=== PATIENT | male | born 1975 | race African-American/Black ===

== ENCOUNTER 2017-06-17 10:10 | Emergency (ER) | payer OTHER ==
[2017-06-17] MEDS: NS 1,000 ML IV (11:00)
[2017-06-17] MEDS: MORPHINE 4 MG/ML 1ML VIAL IV (11:27)
[2017-06-17 11:58] LABS: BASO % 0.3 % (0.0-1.0); EOS # 0.2 10^3/uL (0.0-0.50); EOS % 2.2 % (0.0-3.0); HEMATOCRIT 40.1 % (42.0-52.0); HEMOGLOBIN 12.9 g/dl (14.0-18.0); IMMATURE GRANULOCYTE % 0.1 % (0-0); LYMPH # 1.8 10^3/uL (1.5-4.5); LYMPH % 25.6 % (24.0-44.0); MEAN CORPUSCULAR HGB CONC 32.2 g/dl (32.0-36.5); MEAN CORPUSCULAR VOLUME 71.5 fl (80.0-96.0); MONO # 0.8 10^3/uL (0.0-0.8); MONO % 10.8 % (0.0-5.0); NEUTROPHILS # 4.4 10^3/uL (1.8-7.7); PLATELET COUNT, AUTOMATED 347 10^3/uL (150-450); RED BLOOD COUNT 5.61 10^6/uL (4.30-6.10); RED CELL DISTRIBUTION WIDTH 14.9 % (11.5-14.5); WHITE BLOOD COUNT 7.2 10^3/uL (4.0-10.0)
[2017-06-17 12:19] LABS: ALBUMIN 3.3 GM/DL (3.2-5.2); ALBUMIN/GLOBULIN RATIO 0.57 (1.00-1.93); ALKALINE PHOSPHATASE 112 U/L (45-117); ALT/SGPT 55 U/L (12-78); ANION GAP 9 MEQ/L (8-16); AST/SGOT 46 U/L (7-37); BILIRUBIN,TOTAL 0.6 MG/DL (0.2-1.0); BLOOD UREA NITROGEN 12 MG/DL (7-18); C REACTIVE PROTEIN QUANTITATIV 5.91 MG/DL (0.00-0.30); CALCIUM LEVEL 9.3 MG/DL (8.5-10.1); CARBON DIOXIDE LEVEL 26 MEQ/L (21-32); CHLORIDE LEVEL 101 MEQ/L (98-107); CREATININE FOR GFR 0.86 MG/DL (0.70-1.30); GLOMERULAR FILTRATION RATE > 60.0 (>60); GLUCOSE, FASTING 83 MG/DL (70-100); LIPASE 116 U/L (73-393); POTASSIUM SERUM 4.2 MEQ/L (3.5-5.1); SODIUM LEVEL 136 MEQ/L (136-145); TOTAL PROTEIN 9.1 GM/DL (6.4-8.2)
[2017-06-17 12:29] LABS: ERYTHROCYTE SEDIMENTATION RATE 42 mm/hr (0-15)
[2017-06-17] MEDS ORDERED: ISOVUE-370 76% 100ML VIAL (Q9967) As Ordered (12:36)
[2017-06-17] MEDS ORDERED: GASTROGRAFIN SOLUTION 30ML (Q9963) As Ordered (12:39)
[2017-06-17] MEDS: GASTROGRAFIN SOLUTION 30ML PO ×2 (12:45→13:15)
== END 2017-06-17 15:14 | disposition home or self-care (01) ==
LOC: M ED 10:10
DX: K50.00 Crohn's disease of small intestine without complications (principal); J45.909 Unspecified asthma, uncomplicated; Z87.891 Personal history of nicotine dependence
CPT/HCPCS: Q9967

== ENCOUNTER 2017-08-21 10:39 | Emergency (ER) | payer OTHER ==
[2017-08-21 13:25] LABS: BASO % 0.3 % (0.0-1.0); EOS # 0.1 10^3/uL (0.0-0.50); HEMATOCRIT 38.1 % (42.0-52.0); HEMOGLOBIN 12.1 g/dl (13.5-17.5); IMMATURE GRANULOCYTE % 0.2 % (0-3.0); LYMPH # 2.3 10^3/uL (1.5-4.5); LYMPH % 39.9 % (24.0-44.0); MEAN CORPUSCULAR HGB CONC 31.8 g/dl (32.0-36.5); MEAN CORPUSCULAR VOLUME 69.3 fl (80.0-96.0); MONO # 0.7 10^3/uL (0.0-0.8); MONO % 11.8 % (0.0-5.0); NEUTROPHILS # 2.7 10^3/uL (1.8-7.7); NEUTROPHILS % 46.8 % (36.0-66.0); PLATELET COUNT, AUTOMATED 390 10^3/uL (150-450); RED CELL DISTRIBUTION WIDTH 16.8 % (11.5-14.5); WHITE BLOOD COUNT 5.8 10^3/uL (4.0-10.0)
[2017-08-21] MEDS: GASTROGRAFIN SOLUTION 30ML PO ×2 (13:27→14:00)
[2017-08-21] MEDS: methylPREDNISolone INJ 125 MG/2 ML VIAL (J2930) IV (13:27)
[2017-08-21] MEDS: KETOROLAC 30 MG/ML VIAL (J1885) IV (13:28)
[2017-08-21 13:46] LABS: LACTIC ACID SEPSIS PROTOCOL 0.7 MMOL/L (0.4-2.0)
[2017-08-21 13:57] LABS: ERYTHROCYTE SEDIMENTATION RATE 58 mm/hr (0-15)
[2017-08-21 14:23] LABS: ALBUMIN 3.4 GM/DL (3.2-5.2); ALBUMIN/GLOBULIN RATIO 0.59 (1.00-1.93); ALKALINE PHOSPHATASE 104 U/L (45-117); ALT/SGPT 38 U/L (12-78); AMYLASE 66 U/L (25-115); ANION GAP 6 MEQ/L (8-16); AST/SGOT 28 U/L (7-37); BILIRUBIN,DIRECT 0.2 MG/DL (0.0-0.2); BILIRUBIN,TOTAL 0.5 MG/DL (0.2-1.0); BLOOD UREA NITROGEN 9 MG/DL (7-18); C REACTIVE PROTEIN QUANTITATIV 4.92 MG/DL (0.00-0.30); CALCIUM LEVEL 8.9 MG/DL (8.5-10.1); CARBON DIOXIDE LEVEL 29 MEQ/L (21-32); CHLORIDE LEVEL 103 MEQ/L (98-107); GLOMERULAR FILTRATION RATE > 60.0 (>60); GLUCOSE, FASTING 85 MG/DL (70-100); LIPASE 159 U/L (73-393); POTASSIUM SERUM 4.1 MEQ/L (3.5-5.1); SODIUM LEVEL 138 MEQ/L (136-145); TOTAL PROTEIN 9.2 GM/DL (6.4-8.2)
[2017-08-21] MEDS ORDERED: ISOVUE-370 76% 100ML VIAL (Q9967) As Ordered (14:30)
[2017-08-21 14:44] LABS: APPEARANCE, URINE HAZY (CLEAR); BACTERIA, URINE AUTO NEGATIVE (NEGATIVE); BILIRUBIN, URINE AUTO NEGATIVE (NEGATIVE); BLOOD, URINE BLOOD NEGATIVE (NEGATIVE); COLOR, URINE AMBER (YELLOW); GLUCOSE, URINE (UA) AUTO NEGATIVE (NEGATIVE); KETONE, URINE AUTO NEGATIVE (NEGATIVE); LEUKOCYTE ESTERASE, URINE AUTO NEGATIVE (NEGATIVE); MUCUS, URINE SMALL (NEGATIVE); NITRITE, URINE AUTO NEGATIVE (NEGATIVE); PROTEIN, URINE AUTO NEGATIVE (NEGATIVE); RBC, URINE AUTO 2 /HPF (0-3); SPECIFIC GRAVITY URINE AUTO 1.018 (1.002-1.035); SQUAMOUS EPITHELIAL CELL UR AU 0 /HPF (0-6); UROBILINOGEN, URINE AUTO 0.2 mg/dL (0.0-2.0); WBC, URINE AUTO 1 /HPF (0-3)
== END 2017-08-21 15:43 | disposition home or self-care (01) ==
LOC: M ED 10:39
DX: K50.90 Crohn's disease, unspecified, without complications (principal); K59.00 Constipation, unspecified; J45.909 Unspecified asthma, uncomplicated; Z90.49 Acquired absence of other specified parts of digestive tract; Z79.899 Other long term (current) drug therapy
CPT/HCPCS: Q9963

== ENCOUNTER 2017-10-12 18:08 | Inpatient (IN) | payer OTHER ==
[2017-10-12 19:23] LABS: BASO % 0.2 % (0.0-1.0); EOS # 0.1 10^3/uL (0.0-0.50); EOS % 0.6 % (0.0-3.0); HEMATOCRIT 39.5 % (42.0-52.0); HEMOGLOBIN 12.7 g/dl (13.5-17.5); IMMATURE GRANULOCYTE % 0.3 % (0-3.0); LYMPH # 2.7 10^3/uL (1.5-4.5); MEAN CORPUSCULAR HEMOGLOBIN 22.7 pg (27.0-33.0); MEAN CORPUSCULAR HGB CONC 32.2 g/dl (32.0-36.5); MEAN CORPUSCULAR VOLUME 70.7 fl (80.0-96.0); MONO # 1.1 10^3/uL (0.0-0.8); MONO % 7.8 % (0.0-5.0); NEUTROPHILS % 72.1 % (36.0-66.0); PLATELET COUNT, AUTOMATED 379 10^3/uL (150-450); RED BLOOD COUNT 5.59 10^6/uL (4.30-6.10); RED CELL DISTRIBUTION WIDTH 18.2 % (11.5-14.5); WHITE BLOOD COUNT 13.9 10^3/uL (4.0-10.0)
[2017-10-12] MEDS: ONDANSETRON 4MG/2ML VIAL (J2405) IV (19:26)
[2017-10-12] MEDS: PANTOPRAZOLE 40MG INJ (PROTONIX) (C9113) IV (19:26)
[2017-10-12] MEDS: NS 1,000 ML IV ×2 (19:26→21:13)
[2017-10-12 19:27] LABS: INR 0.94; PROTHROMBIN TIME 12.7 SECONDS (12.4-14.5)
[2017-10-12 19:33] LABS: ALBUMIN 3.6 GM/DL (3.2-5.2); ALKALINE PHOSPHATASE 101 U/L (45-117); ALT/SGPT 33 U/L (12-78); ANION GAP 6 MEQ/L (8-16); AST/SGOT 25 U/L (7-37); BILIRUBIN,DIRECT < 0.1 MG/DL (0.0-0.2); BILIRUBIN,TOTAL 0.4 MG/DL (0.2-1.0); BLOOD UREA NITROGEN 9 MG/DL (7-18); CALCIUM LEVEL 8.7 MG/DL (8.5-10.1); CARBON DIOXIDE LEVEL 27 MEQ/L (21-32); CHLORIDE LEVEL 104 MEQ/L (98-107); CREATININE FOR GFR 1.06 MG/DL (0.70-1.30); GLOMERULAR FILTRATION RATE > 60.0 (>60); GLUCOSE, FASTING 96 MG/DL (70-100); LIPASE 199 U/L (73-393); POTASSIUM SERUM 3.7 MEQ/L (3.5-5.1); SODIUM LEVEL 137 MEQ/L (136-145); TOTAL PROTEIN 9.6 GM/DL (6.4-8.2)
[2017-10-12] MEDS: MORPHINE 4 MG/ML 1ML VIAL/SYRINGE (J2270) IV ×2 (20:00→23:01)
[2017-10-12 20:58] LABS: KETONE, URINE AUTO RFX NEGATIVE (NEGATIVE); LEUKOCYTE ESTERASE UR AUTO RFX NEGATIVE (NEGATIVE); MUCUS, URINE RFX SMALL (NEGATIVE); NITRITE, URINE AUTO RFX NEGATIVE (NEGATIVE); RBC, URINE AUTO RFX 7 /HPF (0-3); SPECIFIC GRAVITY UR AUTO RFX 1.015 (1.002-1.035); SQUAM EPITHELIAL CELL UR AURFX 0 /HPF (0-6); WBC, URINE AUTO RFX 1 /HPF (0-3)
[2017-10-12] MEDS: methylPREDNISolone INJ 125 MG/2 ML VIAL (J2930) IV (21:09)
[2017-10-12] MEDS ORDERED: ONDANSETRON 4MG/2ML VIAL (J2405) IV (21:15)
[2017-10-12] MEDS ORDERED: ACETAMINOPHEN TAB 650MG DOSE (2X325MG) PO (21:15)
[2017-10-12] MEDS ORDERED: PERCOCET 5MG/325MG TAB PO (21:15)
[2017-10-13] MEDS: MORPHINE 4 MG/ML 1ML VIAL/SYRINGE (J2270) IV (02:57)
[2017-10-13] MEDS: NS 1,000 ML IV ×3 (04:03→21:14)
[2017-10-13 06:31] LABS: HEMATOCRIT 36.5 % (42.0-52.0); HEMOGLOBIN 11.7 g/dl (13.5-17.5); MEAN CORPUSCULAR HEMOGLOBIN 22.5 pg (27.0-33.0); MEAN CORPUSCULAR HGB CONC 32.1 g/dl (32.0-36.5); MEAN CORPUSCULAR VOLUME 70.2 fl (80.0-96.0); PLATELET COUNT, AUTOMATED 351 10^3/uL (150-450); RED CELL DISTRIBUTION WIDTH 17.4 % (11.5-14.5); WHITE BLOOD COUNT 10.7 10^3/uL (4.0-10.0)
[2017-10-13 06:46] LABS: ANION GAP 7 MEQ/L (8-16); BLOOD UREA NITROGEN 10 MG/DL (7-18); CALCIUM LEVEL 8.2 MG/DL (8.5-10.1); CARBON DIOXIDE LEVEL 25 MEQ/L (21-32); CHLORIDE LEVEL 106 MEQ/L (98-107); CREATININE FOR GFR 0.92 MG/DL (0.70-1.30); GLOMERULAR FILTRATION RATE > 60.0 (>60); GLUCOSE, FASTING 137 MG/DL (70-100); POTASSIUM SERUM 4.2 MEQ/L (3.5-5.1); SODIUM LEVEL 138 MEQ/L (136-145)
[2017-10-13 08:12] LABS: C REACTIVE PROTEIN QUANTITATIV 5.51 MG/DL (0.00-0.30)
[2017-10-13] MEDS: PANTOPRAZOLE 40MG TAB (PROTONIX) PO (08:27)
[2017-10-13] MEDS: predniSONE 20 MG TAB PO ×2 (08:28→20:06)
[2017-10-13] MEDS: ENOXAPARIN 40 MG/0.4 ML SYRINGE (J1650) SC (08:28)
[2017-10-13] MEDS: PERCOCET 5MG/325MG TAB PO ×3 (08:29→23:33)
[2017-10-13] MEDS ORDERED: predniSONE 20 MG TAB PO (09:00)
[2017-10-13] MEDS ORDERED: PANTOPRAZOLE 40MG TAB (PROTONIX) PO (09:00)
[2017-10-13] MEDS: PIPERACILLIN/TAZOBACTAM SOD 3.375 GM in D5W MINI-BAG PLUS 50 ML IV ×3 (12:12→23:33)
[2017-10-14] MEDS: NS 1,000 ML IV (05:11)
[2017-10-14] MEDS: PIPERACILLIN/TAZOBACTAM SOD 3.375 GM in D5W MINI-BAG PLUS 50 ML IV (05:20)
[2017-10-14] MEDS: PERCOCET 5MG/325MG TAB PO ×2 (05:21→09:47)
[2017-10-14 06:08] LABS: HEMATOCRIT 34.2 % (42.0-52.0); HEMOGLOBIN 10.9 g/dl (13.5-17.5); MEAN CORPUSCULAR HEMOGLOBIN 22.7 pg (27.0-33.0); MEAN CORPUSCULAR HGB CONC 31.9 g/dl (32.0-36.5); MEAN CORPUSCULAR VOLUME 71.3 fl (80.0-96.0); PLATELET COUNT, AUTOMATED 319 10^3/uL (150-450); RED CELL DISTRIBUTION WIDTH 17.5 % (11.5-14.5); WHITE BLOOD COUNT 12.4 10^3/uL (4.0-10.0)
[2017-10-14 06:31] LABS: ANION GAP 5 MEQ/L (8-16); BLOOD UREA NITROGEN 11 MG/DL (7-18); C REACTIVE PROTEIN QUANTITATIV 3.81 MG/DL (0.00-0.30); CALCIUM LEVEL 8.2 MG/DL (8.5-10.1); CARBON DIOXIDE LEVEL 27 MEQ/L (21-32); CHLORIDE LEVEL 108 MEQ/L (98-107); CREATININE FOR GFR 0.94 MG/DL (0.70-1.30); GLOMERULAR FILTRATION RATE > 60.0 (>60); GLUCOSE, FASTING 124 MG/DL (70-100); POTASSIUM SERUM 4.1 MEQ/L (3.5-5.1); SODIUM LEVEL 140 MEQ/L (136-145)
[2017-10-14] MEDS: ENOXAPARIN 40 MG/0.4 ML SYRINGE (J1650) SC (08:19)
[2017-10-14] MEDS: PANTOPRAZOLE 40MG TAB (PROTONIX) PO (08:25)
[2017-10-14] MEDS: predniSONE 20 MG TAB PO (08:25)
== END 2017-10-14 13:50 | disposition home or self-care (01) | DRG 249 ==
LOC: M MS5PR 10-13 11:26 → M ED 18:08 → M ED INP 21:13 → M MS5PR 22:32
DX: K52.9 Noninfective gastroenteritis and colitis, unspecified (principal); Z91.013 Allergy to seafood; Z79.899 Other long term (current) drug therapy

== ENCOUNTER → 2017-10-23 | Outpatient (REF) | payer OTHER ==
[2017-10-23 10:17] LABS: BASO % 0.1 % (0.0-1.0); EOS # 0.1 10^3/uL (0.0-0.50); EOS % 0.4 % (0.0-3.0); HEMATOCRIT 38.9 % (42.0-52.0); HEMOGLOBIN 12.2 g/dl (13.5-17.5); IMMATURE GRANULOCYTE % 0.4 % (0-3.0); LYMPH # 2.6 10^3/uL (1.5-4.5); LYMPH % 19.2 % (24.0-44.0); MEAN CORPUSCULAR HEMOGLOBIN 22.7 pg (27.0-33.0); MEAN CORPUSCULAR HGB CONC 31.4 g/dl (32.0-36.5); MEAN CORPUSCULAR VOLUME 72.4 fl (80.0-96.0); MONO # 0.6 10^3/uL (0.0-0.8); MONO % 4.5 % (0.0-5.0); NEUTROPHILS # 10.3 10^3/uL (1.8-7.7); NEUTROPHILS % 75.4 % (36.0-66.0); PLATELET COUNT, AUTOMATED 403 10^3/uL (150-450); RED BLOOD COUNT 5.37 10^6/uL (4.30-6.10); RED CELL DISTRIBUTION WIDTH 19.3 % (11.5-14.5); WHITE BLOOD COUNT 13.7 10^3/uL (4.0-10.0)
[2017-10-23 10:48] LABS: IRON (FE) 60 UG/DL (65-175)
[2017-10-31 00:10] LABS: ADALIMUMAB LEVEL 8.2 ug/mL (.); ANTI-ADALIMUMAB ABY <25 ng/mL (.); TPMT Activity 19.9 (.)
== END ==
LOC: M LAB REF 09:45
DX: K52.9 Noninfective gastroenteritis and colitis, unspecified (principal)

== ENCOUNTER 2017-11-26 12:00 | Emergency (ER) | payer OTHER ==
[2017-11-26] MEDS: ONDANSETRON 4MG/2ML VIAL (J2405) IV (13:01)
[2017-11-26] MEDS: MORPHINE 4 MG/ML 1ML VIAL/SYRINGE (J2270) IV ×2 (13:01→16:09)
[2017-11-26] MEDS: NS 1,000 ML IV (13:01)
[2017-11-26 13:22] LABS: BASO % 0.3 % (0.0-1.0); EOS % 0.3 % (0.0-3.0); HEMATOCRIT 38.4 % (42.0-52.0); HEMOGLOBIN 12.3 g/dl (13.5-17.5); IMMATURE GRANULOCYTE % 0.3 % (0-3.0); LYMPH % 17.2 % (24.0-44.0); MEAN CORPUSCULAR VOLUME 71.8 fl (80.0-96.0); MONO # 0.9 10^3/uL (0.0-0.8); MONO % 7.8 % (0.0-5.0); NEUTROPHILS # 8.5 10^3/uL (1.8-7.7); NEUTROPHILS % 74.1 % (36.0-66.0); PLATELET COUNT, AUTOMATED 360 10^3/uL (150-450); RED BLOOD COUNT 5.35 10^6/uL (4.30-6.10); RED CELL DISTRIBUTION WIDTH 17.2 % (11.5-14.5); WHITE BLOOD COUNT 11.4 10^3/uL (4.0-10.0)
[2017-11-26 13:42] LABS: ERYTHROCYTE SEDIMENTATION RATE 57 mm/hr (0-15)
[2017-11-26 13:48] LABS: ALBUMIN 3.1 GM/DL (3.2-5.2); ALBUMIN/GLOBULIN RATIO 0.53 (1.00-1.93); ALKALINE PHOSPHATASE 101 U/L (45-117); ALT/SGPT 39 U/L (12-78); ANION GAP 6 MEQ/L (8-16); AST/SGOT 26 U/L (7-37); BILIRUBIN,DIRECT 0.1 MG/DL (0.0-0.2); BILIRUBIN,TOTAL 0.4 MG/DL (0.2-1.0); BLOOD UREA NITROGEN 8 MG/DL (7-18); C REACTIVE PROTEIN QUANTITATIV 3.58 MG/DL (0.00-0.30); CALCIUM LEVEL 8.8 MG/DL (8.5-10.1); CARBON DIOXIDE LEVEL 26 MEQ/L (21-32); CHLORIDE LEVEL 107 MEQ/L (98-107); CREATININE FOR GFR 0.98 MG/DL (0.70-1.30); GLOMERULAR FILTRATION RATE > 60.0 (>60); GLUCOSE, FASTING 86 MG/DL (70-100); LIPASE 110 U/L (73-393); POTASSIUM SERUM 3.8 MEQ/L (3.5-5.1); SODIUM LEVEL 139 MEQ/L (136-145); TOTAL PROTEIN 8.9 GM/DL (6.4-8.2)
[2017-11-26 13:50] LABS: LACTIC ACID SEPSIS PROTOCOL 0.9 MMOL/L (0.4-2.0)
[2017-11-26] MEDS ORDERED: ISOVUE-370 76% 100ML VIAL (Q9967) As Ordered (13:58)
[2017-11-26 15:41] LABS: KETONE, URINE AUTO RFX NEGATIVE (NEGATIVE); LEUKOCYTE ESTERASE UR AUTO RFX NEGATIVE (NEGATIVE); MUCUS, URINE RFX SMALL (NEGATIVE); NITRITE, URINE AUTO RFX NEGATIVE (NEGATIVE); RBC, URINE AUTO RFX 1 /HPF (0-3); SQUAM EPITHELIAL CELL UR AURFX 0 /HPF (0-6); WBC, URINE AUTO RFX 0 /HPF (0-3)
[2017-11-26] MEDS ORDERED: ACETAMINOPHEN 325 MG TAB As Ordered (16:32)
[2017-11-26] MEDS: ACETAMINOPHEN 325 MG TAB PO (16:35)
[2017-11-26] MEDS: methylPREDNISolone INJ 125 MG/2 ML VIAL (J2930) IV (16:35)
== END 2017-11-26 17:24 | disposition home or self-care (01) ==
LOC: M ED 12:00
DX: K50.90 Crohn's disease, unspecified, without complications (principal); J45.909 Unspecified asthma, uncomplicated; J44.9 Chronic obstructive pulmonary disease, unspecified; Z91.013 Allergy to seafood; Z79.899 Other long term (current) drug therapy
CPT/HCPCS: J2270

== ENCOUNTER → 2018-02-16 | Outpatient (REF) | payer OTHER ==
[2018-02-16 14:35] LABS: ALBUMIN 3.3 GM/DL (3.2-5.2); ALBUMIN/GLOBULIN RATIO 0.61 (1.00-1.93); ALKALINE PHOSPHATASE 124 U/L (45-117); ALT/SGPT 32 U/L (12-78); AST/SGOT 29 U/L (7-37); BILIRUBIN,DIRECT < 0.1 MG/DL (0.0-0.2); BILIRUBIN,TOTAL 0.4 MG/DL (0.2-1.0); TOTAL PROTEIN 8.7 GM/DL (6.4-8.2)
== END ==
LOC: M LAB REF 13:52
DX: K52.9 Noninfective gastroenteritis and colitis, unspecified (principal)

== ENCOUNTER 2018-02-20 16:23 | Emergency (ER) | payer OTHER ==
[2018-02-20] MEDS: KETOROLAC 30 MG/ML VIAL (J1885) IV (17:53)
[2018-02-20] MEDS: ONDANSETRON 4MG/2ML VIAL (J2405) IV (17:53)
[2018-02-20] MEDS: GASTROGRAFIN SOLUTION 30ML PO ×2 (17:53→18:35)
[2018-02-20] MEDS: NS 1,000 ML IV (17:54)
[2018-02-20 18:00] LABS: BASO % 0.2 % (0.0-1.0); EOS # 0.2 10^3/uL (0.0-0.50); EOS % 1.8 % (0.0-3.0); HEMATOCRIT 34.1 % (42.0-52.0); HEMOGLOBIN 10.7 g/dl (13.5-17.5); IMMATURE GRANULOCYTE % 0.3 % (0-3.0); LYMPH # 2.6 10^3/uL (1.5-4.5); LYMPH % 26.8 % (24.0-44.0); MEAN CORPUSCULAR HEMOGLOBIN 22.2 pg (27.0-33.0); MEAN CORPUSCULAR HGB CONC 31.4 g/dl (32.0-36.5); MEAN CORPUSCULAR VOLUME 70.6 fl (80.0-96.0); MONO # 0.6 10^3/uL (0.0-0.8); MONO % 6.7 % (0.0-5.0); NEUTROPHILS # 6.1 10^3/uL (1.8-7.7); NEUTROPHILS % 64.2 % (36.0-66.0); PLATELET COUNT, AUTOMATED 451 10^3/uL (150-450); RED BLOOD COUNT 4.83 10^6/uL (4.30-6.10); RED CELL DISTRIBUTION WIDTH 18.4 % (11.5-14.5); WHITE BLOOD COUNT 9.5 10^3/uL (4.0-10.0)
[2018-02-20 18:22] LABS: KETONE, URINE AUTO RFX NEGATIVE (NEGATIVE); LEUKOCYTE ESTERASE UR AUTO RFX NEGATIVE (NEGATIVE); NITRITE, URINE AUTO RFX NEGATIVE (NEGATIVE); RBC, URINE AUTO RFX 2 /HPF (0-3); SPECIFIC GRAVITY UR AUTO RFX 1.003 (1.002-1.035); SQUAM EPITHELIAL CELL UR AURFX 0 /HPF (0-6); WBC, URINE AUTO RFX 0 /HPF (0-3)
[2018-02-20 18:23] LABS: LACTIC ACID SEPSIS PROTOCOL 0.8 MMOL/L (0.4-2.0)
[2018-02-20 18:27] LABS: ALBUMIN 3.2 GM/DL (3.2-5.2); ALBUMIN/GLOBULIN RATIO 0.57 (1.00-1.93); ALKALINE PHOSPHATASE 115 U/L (45-117); ALT/SGPT 34 U/L (12-78); AMYLASE 61 U/L (25-115); ANION GAP 8 MEQ/L (8-16); AST/SGOT 28 U/L (7-37); BILIRUBIN,DIRECT < 0.1 MG/DL (0.0-0.2); BILIRUBIN,TOTAL 0.3 MG/DL (0.2-1.0); BLOOD UREA NITROGEN 8 MG/DL (7-18); CALCIUM LEVEL 9.2 MG/DL (8.5-10.1); CARBON DIOXIDE LEVEL 28 MEQ/L (21-32); CHLORIDE LEVEL 103 MEQ/L (98-107); CREATININE FOR GFR 1.02 MG/DL (0.70-1.30); GLOMERULAR FILTRATION RATE > 60.0 (>60); GLUCOSE, FASTING 87 MG/DL (70-100); LIPASE 132 U/L (73-393); SODIUM LEVEL 139 MEQ/L (136-145); TOTAL PROTEIN 8.8 GM/DL (6.4-8.2)
[2018-02-20] MEDS ORDERED: ISOVUE-370 76% 100ML VIAL (Q9967) As Ordered (19:01)
[2018-02-20] MEDS: CIPROFLOXACIN 500 MG TAB PO (20:30)
[2018-02-20] MEDS: predniSONE 20 MG TAB PO (20:30)
[2018-02-20] MEDS: metroNIDAZOLE (FLAGYL) 500 MG TAB PO (20:30)
== END 2018-02-20 20:43 | disposition home or self-care (01) ==
LOC: M ED 16:23
DX: K50.90 Crohn's disease, unspecified, without complications (principal); R11.0 Nausea; J45.909 Unspecified asthma, uncomplicated; J44.9 Chronic obstructive pulmonary disease, unspecified; Z90.49 Acquired absence of other specified parts of digestive tract
CPT/HCPCS: Q9963

== ENCOUNTER 2018-04-30 14:48 | Emergency (ER) | payer OTHER ==
[2018-04-30 16:52] LABS: BASO % 0.2 % (0.0-1.0); EOS # 0.1 10^3/uL (0.0-0.50); HEMOGLOBIN 11.5 g/dl (13.5-17.5); IMMATURE GRANULOCYTE % 0.3 % (0-3.0); LYMPH # 2.4 10^3/uL (1.5-4.5); LYMPH % 24.4 % (24.0-44.0); MEAN CORPUSCULAR HEMOGLOBIN 22.6 pg (27.0-33.0); MEAN CORPUSCULAR HGB CONC 31.9 g/dl (32.0-36.5); MEAN CORPUSCULAR VOLUME 70.7 fl (80.0-96.0); MONO # 0.9 10^3/uL (0.0-0.8); MONO % 9.3 % (0.0-5.0); NEUTROPHILS # 6.3 10^3/uL (1.8-7.7); NEUTROPHILS % 64.8 % (36.0-66.0); PLATELET COUNT, AUTOMATED 363 10^3/uL (150-450); RED BLOOD COUNT 5.09 10^6/uL (4.30-6.10); RED CELL DISTRIBUTION WIDTH 18.9 % (11.5-14.5); WHITE BLOOD COUNT 9.7 10^3/uL (4.0-10.0)
[2018-04-30 16:56] LABS: ALBUMIN 3.1 GM/DL (3.2-5.2); ALBUMIN/GLOBULIN RATIO 0.62 (1.00-1.93); ALKALINE PHOSPHATASE 111 U/L (45-117); ALT/SGPT 45 U/L (12-78); ANION GAP 7 MEQ/L (8-16); AST/SGOT 51 U/L (7-37); BILIRUBIN,DIRECT 0.1 MG/DL (0.0-0.2); BILIRUBIN,TOTAL 0.4 MG/DL (0.2-1.0); BLOOD UREA NITROGEN 7 MG/DL (7-18); CALCIUM LEVEL 8.3 MG/DL (8.5-10.1); CARBON DIOXIDE LEVEL 26 MEQ/L (21-32); CHLORIDE LEVEL 103 MEQ/L (98-107); CREATININE FOR GFR 0.95 MG/DL (0.70-1.30); GLOMERULAR FILTRATION RATE > 60.0 (>60); GLUCOSE, FASTING 79 MG/DL (70-100); LIPASE 86 U/L (73-393); POTASSIUM SERUM 4.2 MEQ/L (3.5-5.1); SODIUM LEVEL 136 MEQ/L (136-145); TOTAL PROTEIN 8.1 GM/DL (6.4-8.2)
[2018-04-30] MEDS ORDERED: ISOVUE-370 76% 100ML VIAL (Q9967) As Ordered (17:22)
[2018-04-30] MEDS: NS 1,000 ML IV (17:48)
[2018-04-30] MEDS: methylPREDNISolone INJ 125 MG/2 ML VIAL (J2930) IV (17:48)
[2018-04-30] MEDS: ONDANSETRON 4MG/2ML VIAL (J2405) IV (17:48)
[2018-04-30] MEDS: KETOROLAC 30 MG/ML VIAL (J1885) IV (17:49)
[2018-04-30 18:00] LABS: KETONE, URINE AUTO RFX NEGATIVE (NEGATIVE); LEUKOCYTE ESTERASE UR AUTO RFX NEGATIVE (NEGATIVE); MUCUS, URINE RFX SMALL (NEGATIVE); NITRITE, URINE AUTO RFX NEGATIVE (NEGATIVE); RBC, URINE AUTO RFX 2 /HPF (0-3); SPECIFIC GRAVITY UR AUTO RFX 1.006 (1.002-1.035); SQUAM EPITHELIAL CELL UR AURFX 0 /HPF (0-6); WBC, URINE AUTO RFX 0 /HPF (0-3)
[2018-04-30] MEDS: MORPHINE 4 MG/ML 1ML VIAL/SYRINGE (J2270) IV (19:57)
== END 2018-04-30 23:16 | disposition home or self-care (01) ==
LOC: M ED 14:48
DX: K50.919 Crohn's disease, unspecified, with unspecified complications (principal); J45.909 Unspecified asthma, uncomplicated; Z79.899 Other long term (current) drug therapy
CPT/HCPCS: J2270

== ENCOUNTER 2018-06-24 16:28 | Inpatient (IN) | payer OTHER ==
[~2018-06-24] VITALS: Ht 172.7 cm; Wt 105.0 kg
[~2018-06-24 16:28] MED LIST: ACET30TAB PO; CIPR-249 PO; FLAG500T PO; FOLI1TAB11 PO; FOLI5INJ2 PO; HUMI40KI SC; PRED10TA2 PO; PRED20TA PO; PROAAER10 INH; VITMTA PO; ZOFR4TAB14 PO; mvi PO
[2018-06-24 17:28] LABS: BASO % 0.2 % (0.0-1.0); EOS % 0.1 % (0.0-3.0); HEMATOCRIT 40.4 % (42.0-52.0); HEMOGLOBIN 12.9 g/dl (13.5-17.5); LYMPH # 0.9 10^3/uL (1.5-4.5); LYMPH % 7.3 % (24.0-44.0); MEAN CORPUSCULAR HEMOGLOBIN 22.8 pg (27.0-33.0); MEAN CORPUSCULAR HGB CONC 31.9 g/dl (32.0-36.5); MEAN CORPUSCULAR VOLUME 71.5 fl (80.0-96.0); MONO # 0.1 10^3/uL (0.0-0.8); MONO % 1.1 % (0.0-5.0); NEUTROPHILS # 11.2 10^3/uL (1.8-7.7); NEUTROPHILS % 91.1 % (36.0-66.0); PLATELET COUNT, AUTOMATED 337 10^3/uL (150-450); RED BLOOD COUNT 5.65 10^6/uL (4.30-6.10); WHITE BLOOD COUNT 12.3 10^3/uL (4.0-10.0)
[2018-06-24 17:36] LABS: ALBUMIN 3.7 GM/DL (3.2-5.2); ALT/SGPT 43 U/L (12-78); BILIRUBIN,DIRECT 0.1 MG/DL (0.0-0.2); BILIRUBIN,TOTAL 0.4 MG/DL (0.2-1.0); BLOOD UREA NITROGEN 8 MG/DL (7-18); C REACTIVE PROTEIN QUANTITATIV 3.56 MG/DL (0.00-0.30); CARBON DIOXIDE LEVEL 26 MEQ/L (21-32); CHLORIDE LEVEL 102 MEQ/L (98-107); CREATININE FOR GFR 0.95 MG/DL (0.70-1.30); GLOMERULAR FILTRATION RATE > 60.0 (>60); GLUCOSE, FASTING 113 MG/DL (70-100); LIPASE 130 U/L (73-393); POTASSIUM SERUM 4.9 MEQ/L (3.5-5.1); SODIUM LEVEL 135 MEQ/L (136-145); TOTAL PROTEIN 8.7 GM/DL (6.4-8.2)
[2018-06-24 18:07] LABS: APPEARANCE, URINE CLEAR (CLEAR); BACTERIA, URINE AUTO NEGATIVE (NEGATIVE); BILIRUBIN, URINE AUTO NEGATIVE (NEGATIVE); BLOOD, URINE BLOOD 1+ (NEGATIVE); COLOR, URINE STRAW (YELLOW); GLUCOSE, URINE (UA) AUTO NEGATIVE (NEGATIVE); KETONE, URINE AUTO NEGATIVE (NEGATIVE); LEUKOCYTE ESTERASE, URINE AUTO NEGATIVE (NEGATIVE); NITRITE, URINE AUTO NEGATIVE (NEGATIVE); PROTEIN, URINE AUTO NEGATIVE (NEGATIVE); RBC, URINE AUTO 1 /HPF (0-3); SPECIFIC GRAVITY URINE AUTO 1.004 (1.002-1.035); SQUAMOUS EPITHELIAL CELL UR AU 0 /HPF (0-6); UROBILINOGEN, URINE AUTO 0.2 mg/dL (0.0-2.0); WBC, URINE AUTO 0 /HPF (0-3)
[2018-06-24] MEDS ORDERED: KETOROLAC 30 MG/ML VIAL (J1885) IV ONE (18:15)
[2018-06-24] MEDS ORDERED: ONDANSETRON 4MG/2ML VIAL (J2405) IV ONE (18:15)
[2018-06-24] MEDS ORDERED: ISOVUE-370 76% 100ML VIAL (Q9967) As Ordered ONE (18:54)
--- NOTE | 2018-06-24 20:14 | REPVR ---
EXAM: CT Abdomen and Pelvis With Contrast EXAM DATE/TIME: 06/24/2018 7:06 PM CLINICAL HISTORY: 42 years old, male; Pain; Abdominal pain; Additional info: Abd pain/vomiting(hx of bowel obs) TECHNIQUE: Axial computed tomography images of the abdomen and pelvis with intravenous contrast. All CT scans at this facility use at least one of these dose optimization techniques: automated exposure control; mA and/or kV adjustment per patient size (includes targeted exams where dose is matched to clinical indication); or iterative reconstruction. Coronal and sagittal reformatted images were created and reviewed. CONTRAST: 100 ml of ISO 370 administered intravenously. COMPARISON: CT ABD/PEL W/IV CONTRAST ONLY 04/30/2018 5:23 PM FINDINGS: Lower thorax: No acute findings. ABDOMEN: Liver: Coarse parenchymal calcification in the anterior inferior segment of the right lobe of the liver. No mass. Gallbladder and bile ducts: Normal. No calcified stones. No ductal dilation. Pancreas: Normal. No ductal dilation. Spleen: Normal. No splenomegaly. Adrenals: Normal. No mass. Kidneys and ureters: Normal. No hydronephrosis. Stomach and bowel: Since the previous examination there has been interval dilatation and fecalization of the distal ileum at the level of the sigmoid anastomsis. Mildly dilated air and fluid-filled small bowel loops noted in the upper abdomen. There is circumferential mural wall thickening of the sigmoid down to the level of the rectum. Perirectal inflammatory changes noted stable from previous. Appendix: Not seen as a separate structure PELVIS: Bladder: As noted on the previous examination, there is abnormal soft tissue thickening noted in the dome of the bladder anteriorly and to the right. There is an extravesicular gas fluid collection in noted in the area of bladder wall thickening which measures 2.5 x 2.1 x 2.2 cm. A second small pocket of extraluminal gas has developed at the level of the sigmoid anastomosis along its right lateral margin. The phlegmonous inflammatory changes are noted in the adjacent mesenteric fat and small bowel loops Reproductive: Unremarkable as visualized. ABDOMEN and PELVIS: Intraperitoneal space: Inflammatory changes in the mesenteric fat. No ascites. Bones/joints: No acute fracture. No dislocation. Soft tissues: Unremarkable. Vasculature: Normal. No abdominal aortic aneurysm. Lymph nodes: Normal. No enlarged lymph nodes. IMPRESSION: 1. Small Abscess in the pelvis contiguous with the dome of the bladder. 2. Small pocket of extraluminal air and increased phlegmonous inflammatory changes contiguous with the right lateral margin of the sigmoid anastomosis. 3. Significant distention of the distal ileum with stool/debris. Mild small bowel ileus 4. Circumferential wall thickening of the sigmoid colon down to level the rectum. Stable perirectal inflammatory changes Electronically signed by: Maya Rome On 06/24/2018 20:14:46 PM
[2018-06-24] MEDS ORDERED: MORPHINE 4 MG/ML 1ML VIAL/SYRINGE (J2270) IV ONE (21:30)
[2018-06-24] MEDS ORDERED: PRED20TA PO (22:30)
[2018-06-24] MEDS ORDERED: ASPI-222 PO (22:30)
[2018-06-24] MEDS ORDERED: IMUR50TA7 PO (22:37)
[2018-06-24] MEDS ORDERED: ONDA4TAB5 PO (22:37)
[2018-06-25] MEDS ORDERED: MORPHINE 4 MG/ML 1ML VIAL/SYRINGE (J2270) IV ONE (01:15)
[2018-06-25] MEDS ORDERED: METOCLOPRAMIDE INJ 10MG/2ML VIAL (J2765) IV PRN (01:30)
[2018-06-25] MEDS ORDERED: ONDANSETRON 4MG/2ML VIAL (J2405) IV PRN (01:30)
[2018-06-25 02:56] LABS: ERYTHROCYTE SEDIMENTATION RATE 34 mm/hr (0-15)
[2018-06-25] MEDS: NS 1,000 ML IV SCH ×3 (04:22→23:59)
[2018-06-25] MEDS: MORPHINE 4 MG/ML 1ML VIAL/SYRINGE (J2270) IV PRN ×5 (04:37→21:51)
[2018-06-25] MEDS: CEFEPIME HCL 1 GM in D5W MINI-BAG PLUS 50 ML IV SCH ×2 (04:38→15:53)
[2018-06-25] MEDS: metroNIDAZOLE 500 MG in APPROPRIATE DILUENT 1 EA IV SCH ×3 (05:17→19:54)
[2018-06-25] MEDS: HEPARIN SOD (PORCINE) 5000 UNITS/ML VIAL SC SCH ×3 (06:00→21:50)
--- NOTE | 2018-06-25 08:09 | HPE ---
DATE OF ADMISSION: 06/25/2018 CHIEF COMPLAINT: Crampy abdominal pain for the past several days. HISTORY OF PRESENT ILLNESS: The patient is a 42-year-old male with significant past medical history of Crohn disease. He has previously been on azathioprine and recently restarted back on it 06/17/2018. He is on Humira every 2 weekly. He was also started on prednisone today for what was believed to be a flare of his Crohn disease as he has had abdominal pain for the past several days. He has had no diarrhea. Crampy abdominal discomfort with nausea, no vomiting. He denies cough, chest pain, fevers, chills, urinary symptoms. He follows with Dr. Roman from GI usually. He is status post almost total colectomy with reanastomosis at the sigmoid colon. He was evaluated by the surgeon in the emergency room who recommended medical management. CT of the abdomen and pelvis showed small abscess in the pelvis contiguous with the dome of the bladder, small pocket of extraluminal air and increased phlegmonous inflammatory changes contiguous with the right lateral margin of the sigmoid anastomosis. Significant distention of the distal ileum with stool debris. Mild small bowel ileus. Circumferential wall thickening of the sigmoid colon down to the level of the rectum. PAST MEDICAL HISTORY: See history of present illness (HPI). PAST SURGICAL HISTORY: He has had fistula repair as well as colectomy. ALLERGIES: - SHELLFISH HOME MEDICATIONS: - azathioprine - Humira every 2 weeks - prednisone 60 started today - Zofran - aspirin 325 mg, he was using for pain SOCIAL HISTORY: Denies tobacco, alcohol or illicit drug use. FAMILY HISTORY: Noncontributory. REVIEW OF SYSTEMS: A 12-point review of systems was completed, all of which were negative except those listed in the history of present illness (HPI). VITALS ON ADMISSION: Temperature 97.9, pulse 59, respirations 17, satting at 98% on room air, blood pressure 154/97. PHYSICAL EXAMINATION: General: He is well nourished, in no apparent distress. Head: Normocephalic, atraumatic. Eyes: Extraocular movements are intact. Pupils equal round and reactive to light. Neck: Supple. No jugular venous pulse (JVP). Lungs: Clear to auscultation. No crackles, wheezes, rales or rhonchi. Abdomen: No rebound. No guarding. Hypoactive bowel sounds. Well healed midline scar. Extremities: No pitting edema or calf tenderness. Skin is intact. No rashes, lesions or breakdowns. Neurological Exam: Alert and oriented times three. No focal deficits. LABS AND IMAGING: Done in the ER, white count of 12, hemoglobin/hematocrit (H/H) 12/40, platelet count 337. BUN and creatinine 8 over 0.95. Urinalysis (UA) is unremarkable. Imaging showed small abscess in the pelvis contiguous with the dome of the bladder, small pocket of extraluminal air and increased phlegmonous and inflammatory changes contiguous with the right lateral margin of the sigmoid anastomosis. Significant distention of the distal ileum with stool debris. Mild small bowel ileus. Circumferential wall thickening of the sigmoid colon down to the level of the rectum. ASSESSMENT AND PLAN: Abdominal pain. What appears to be complicated flare of his Crohn disease with what appears to be a phlegmon/abscess. Unable to rule out fistula at this point, possibly ileus. The patient was evaluated by the surgeon in the ER who recommended admission to medicine. Will start the patient on broad spectrum antibiotic to cover enteric organism, anaerobic as well as gram negative, with Cefepime and Flagyl. Will start steroids, Solu-Medrol 60 daily. Will keep nothing by mouth (n.p.o.). Morphine as needed pain control. Zofran as needed nausea. Reglan as well. IV fluids. Replenish electrolytes as needed. The patient follows with Dr. Roman. Would likely benefit from followup with general surgery as well as Dr. Roman of GI in the a.m. Continue his home medications, azathioprine, and his next Humira dose is on 06/29/2018. Supportive deep vein thrombosis (DVT) prophylaxis. Sequential compression devices (SCDS). GI prophylaxis not indicated. Diet - n.p.o. for now. Will also send stool culture, stool WBCs, stool calprotectin, lactoferrin, ESR and CRP.
[2018-06-25 08:15] VITALS: BP 124/61
[2018-06-25] MEDS: methylPREDNISolone INJ 125 MG/2 ML VIAL (J2930) IV SCH (09:06)
[2018-06-25] MEDS: FOLIC ACID 1 MG TAB PO SCH (09:07)
[2018-06-25] MEDS: MULTIVITAMINS/MINERALS THERAP 1 TAB PO SCH (09:07)
[2018-06-25] MEDS: azaTHIOprine 50 MG TAB (J7500) PO SCH ×2 (10:16→12:43)
[2018-06-25 13:09] VITALS: BP 134/64
[2018-06-25 14:56] LABS: HEMATOCRIT 38.9 % (42.0-52.0); HEMOGLOBIN 12.5 g/dl (13.5-17.5); MEAN CORPUSCULAR HEMOGLOBIN 22.9 pg (27.0-33.0); MEAN CORPUSCULAR HGB CONC 32.1 g/dl (32.0-36.5); MEAN CORPUSCULAR VOLUME 71.1 fl (80.0-96.0); PLATELET COUNT, AUTOMATED 327 10^3/uL (150-450); RED BLOOD COUNT 5.47 10^6/uL (4.30-6.10); WHITE BLOOD COUNT 9.2 10^3/uL (4.0-10.0)
[2018-06-25 15:18] LABS: BLOOD UREA NITROGEN 13 MG/DL (7-18); CALCIUM LEVEL 8.5 MG/DL (8.5-10.1); CARBON DIOXIDE LEVEL 26 MEQ/L (21-32); CHLORIDE LEVEL 103 MEQ/L (98-107); CREATININE FOR GFR 0.95 MG/DL (0.70-1.30); GLOMERULAR FILTRATION RATE > 60.0 (>60); GLUCOSE, FASTING 112 MG/DL (70-100); POTASSIUM SERUM 4.5 MEQ/L (3.5-5.1); SODIUM LEVEL 136 MEQ/L (136-145)
[2018-06-25 18:45] VITALS: BP 170/74
[2018-06-25 22:00] VITALS: BP 135/65
[2018-06-26] MEDS: CEFEPIME HCL 1 GM in D5W MINI-BAG PLUS 50 ML IV SCH ×2 (02:58→15:27)
[2018-06-26] MEDS: MORPHINE 4 MG/ML 1ML VIAL/SYRINGE (J2270) IV PRN ×3 (03:04→19:58)
[2018-06-26] MEDS: metroNIDAZOLE 500 MG in APPROPRIATE DILUENT 1 EA IV SCH ×3 (04:29→19:58)
[2018-06-26] MEDS: HEPARIN SOD (PORCINE) 5000 UNITS/ML VIAL SC SCH ×3 (05:40→22:31)
[2018-06-26 05:55] LABS: HEMATOCRIT 35.6 % (42.0-52.0); HEMOGLOBIN 11.4 g/dl (13.5-17.5); MEAN CORPUSCULAR HEMOGLOBIN 22.9 pg (27.0-33.0); MEAN CORPUSCULAR VOLUME 71.5 fl (80.0-96.0); PLATELET COUNT, AUTOMATED 301 10^3/uL (150-450); RED BLOOD COUNT 4.98 10^6/uL (4.30-6.10); WHITE BLOOD COUNT 7.7 10^3/uL (4.0-10.0)
[2018-06-26 06:00] VITALS: BP 116/56
[2018-06-26 06:23] LABS: BLOOD UREA NITROGEN 15 MG/DL (7-18); CARBON DIOXIDE LEVEL 27 MEQ/L (21-32); CHLORIDE LEVEL 105 MEQ/L (98-107); CREATININE FOR GFR 0.96 MG/DL (0.70-1.30); GLOMERULAR FILTRATION RATE > 60.0 (>60); GLUCOSE, FASTING 83 MG/DL (70-100); POTASSIUM SERUM 3.6 MEQ/L (3.5-5.1); SODIUM LEVEL 139 MEQ/L (136-145)
--- NOTE | 2018-06-26 07:03 | IPN ---
DATE: 06/25/2018 SUBJECTIVE: Patient seen and examined in the room today. Patient continues to complain about persistent abdominal pain mainly located in the midabdomen with radiation to the whole abdomen. The pain is worsened with direct pressure. Pain medication is helping to control the pain. Denied any blood in the stool. Patient does complain about intermittent nausea and vomiting. Denies any fever or chills. OBJECTIVE: VITAL SIGNS: Temperature is 97.4, pulse 82, respirations 18, blood pressure 124/61, pulse oximetry 95% in room air. GENERAL: Mild to moderate distress. Alert and awake. HEENT: Normocephalic, atraumatic. Extraocular motor grossly intact. CARDIOVASCULAR: Positive S1, S2. Regular rate. LUNGS: Clear to auscultation bilaterally. ABDOMEN: Hypoactive bowel sounds. Extreme tenderness to palpation. EXTREMITIES: No edema. LABORATORY DATA: WBC is 9.2, hemoglobin 12.5, hematocrit 38.9, platelet count is 327. Sodium is 136, potassium 4.5, chloride 103, carbon dioxide 26, BUN 13, creatinine 0.95, GFR greater than 60, fasting glucose is 112, calcium is 8.5. ASSESSMENT AND PLAN: 1. Acute Crohn's flare. CT abdomen and pelvis results reviewed. General surgery consulted. Per impression, patient seems to be dealing with acute Crohn's flare and patient is currently on antibiotics. Patient is on IV prednisone, azathioprine. Usually, patient follows with Dr Roman. According to the patient, patient has failed multiple Crohn medications in the past. Patient stated that he started having more frequent flares and he has been in extreme acute Crohn flare almost every 2 months. Continue the patient on nothing by mouth, bowel rest. 2. Deep venous thrombosis (DVT) prophylaxis. On heparin.
[2018-06-26] MEDS: methylPREDNISolone INJ 125 MG/2 ML VIAL (J2930) IV SCH (08:18)
[2018-06-26] MEDS: MULTIVITAMINS/MINERALS THERAP 1 TAB PO SCH (08:18)
[2018-06-26] MEDS: azaTHIOprine 50 MG TAB (J7500) PO SCH (08:18)
[2018-06-26] MEDS: FOLIC ACID 1 MG TAB PO SCH (08:18)
[2018-06-26] MEDS: NS 1,000 ML IV SCH ×2 (11:49→22:31)
[2018-06-26 14:00] VITALS: BP 127/69
--- NOTE | 2018-06-26 19:29 | IPNPDOC ---
Text Note Date of Service The patient was seen on 06/26/18. NOTE SUBJECTIVE: Patient is seen and examined in the room today. His abdominal pain is improving. Pain mainly radiates to lower abdomen with direct pressure. No blood in stool. He does complain about diarrhea. Patient does complain about intermittent nausea and vomiting. Denies any fever or chills. OBJECTIVE: VITAL SIGNS: Listed below. GENERAL: No acute distress. Alert and awake. HEENT: Normocephalic, atraumatic. Extraocular motor grossly intact. CARDIOVASCULAR: Positive S1, S2. Regular rate. LUNGS: Clear to auscultation bilaterally. ABDOMEN: Hypoactive bowel sounds. Tenderness to palpation. EXTREMITIES: No edema. LABORATORY DATA: List below. ASSESSMENT AND PLAN: #. Acute Crohn's flare. - CT abdomen and pelvis results reviewed. General surgery consulted. Per impression, patient seems to be dealing with acute Crohn's flare. On antibiotics. On prednisone, azathioprine. - Follow up with with Dr Roman in the outpatient setting. GI consult is not available at this moment. # Persistent diarrhea - Possibly secondary to Crohn's flare. - GI panel is negative. Stool lactoferrin is positive. #. Deep venous thrombosis (DVT) prophylaxis. On heparin. VS,Fishbone, I+O VS, Fishbone, I+O Laboratory Tests 06/26/18 05:41 Red Blood Count 4.98, Mean Corpuscular Volume 71.5 L, Mean Corpuscular Hem oglobin 22.9 L, Mean Corpuscular Hemoglobin Concent 32.0, Red Cell Distribution Width 18.9 H, Calcium Level 8.0 L Vital Signs Date Time Temp Pulse Resp B/P (MAP) Pulse Ox O2 Delivery O2 Flow Rate FiO2 06/26/18 14:00 98.0 76 16 127/69 (88) 96 06/25/18 14:34 Room Air I&O- Last 24 Hours up to 6 AM 06/26/18 06:00 Intake Total 980 ml Output Total 300 ml Balance 680 ml JOSEPH RICARDO DO Jun 26, 2018 19:29
[2018-06-26 22:00] VITALS: BP 128/58
[2018-06-27] MEDS: CEFEPIME HCL 1 GM in D5W MINI-BAG PLUS 50 ML IV SCH ×2 (02:43→15:41)
[2018-06-27] MEDS: metroNIDAZOLE 500 MG in APPROPRIATE DILUENT 1 EA IV SCH ×3 (03:51→20:59)
[2018-06-27] MEDS: MORPHINE 4 MG/ML 1ML VIAL/SYRINGE (J2270) IV PRN ×3 (03:52→13:57)
[2018-06-27] MEDS: HEPARIN SOD (PORCINE) 5000 UNITS/ML VIAL SC SCH ×3 (05:44→21:00)
[2018-06-27 06:00] VITALS: BP 124/65
[2018-06-27 06:07] LABS: HEMATOCRIT 36.4 % (42.0-52.0); HEMOGLOBIN 11.3 g/dl (13.5-17.5); MEAN CORPUSCULAR HEMOGLOBIN 22.4 pg (27.0-33.0); MEAN CORPUSCULAR VOLUME 72.2 fl (80.0-96.0); PLATELET COUNT, AUTOMATED 324 10^3/uL (150-450); RED BLOOD COUNT 5.04 10^6/uL (4.30-6.10); WHITE BLOOD COUNT 7.5 10^3/uL (4.0-10.0)
[2018-06-27 06:36] LABS: BLOOD UREA NITROGEN 14 MG/DL (7-18); CALCIUM LEVEL 8.1 MG/DL (8.5-10.1); CARBON DIOXIDE LEVEL 27 MEQ/L (21-32); CHLORIDE LEVEL 105 MEQ/L (98-107); CREATININE FOR GFR 0.95 MG/DL (0.70-1.30); GLOMERULAR FILTRATION RATE > 60.0 (>60); GLUCOSE, FASTING 79 MG/DL (70-100); POTASSIUM SERUM 3.5 MEQ/L (3.5-5.1); SODIUM LEVEL 138 MEQ/L (136-145)
[2018-06-27] MEDS: azaTHIOprine 50 MG TAB (J7500) PO SCH (09:29)
[2018-06-27] MEDS: MULTIVITAMINS/MINERALS THERAP 1 TAB PO SCH (09:29)
[2018-06-27] MEDS: FOLIC ACID 1 MG TAB PO SCH (09:29)
[2018-06-27] MEDS: methylPREDNISolone INJ 125 MG/2 ML VIAL (J2930) IV SCH (09:30)
[2018-06-27] MEDS: NS 1,000 ML IV SCH (09:31)
[2018-06-27 14:00] VITALS: BP 134/75
--- NOTE | 2018-06-27 17:11 | IPNPDOC ---
Text Note Date of Service The patient was seen on 06/27/18. NOTE SUBJECTIVE: Patient is seen and examined in the room today. His abdominal pain is under control with current pain medication. Pain is located at mid-abdomen with radiation to left lower abdomen only now. He tolerates liquid diet well. He feels he can tolerate the dietary advancement. Diarrhea is improving also. Denies any fever or chills. OBJECTIVE: VITAL SIGNS: Listed below. GENERAL: No acute distress. Alert and awake. HEENT: Normocephalic, atraumatic. Extraocular motor grossly intact. CARDIOVASCULAR: Positive S1, S2. Regular rate. LUNGS: Clear to auscultation bilaterally. ABDOMEN: Hypoactive bowel sounds. Tenderness to palpation. EXTREMITIES: No edema. LABORATORY DATA: List below. ASSESSMENT AND PLAN: #. Acute Crohn's flare. - CT abdomen and pelvis results reviewed. General surgery consulted. Per impression, patient seems to be dealing with acute Crohn's flare. On antibiotics. On prednisone, azathioprine. - Follow up with with Dr Roman in the outpatient setting. GI consult is not available at this moment. - titrating pain medication. Titrating steroid. Advance diet as tolerated. # Persistent diarrhea - Possibly secondary to Crohn's flare. - GI panel is negative. Stool lactoferrin is positive. #. Deep venous thrombosis (DVT) prophylaxis. On heparin. VS,Fishbone, I+O VS, Fishbone, I+O Laboratory Tests 06/27/18 05:21 Red Blood Count 5.04, Mean Corpuscular Volume 72.2 L, Mean Corpuscular Hemoglobin 22.4 L, Mean Corpuscular Hemoglobin Concent 31.0 L, Red Cell Distribution Width 18.6 H, Calcium Level 8.1 L Vital Signs Date Time Temp Pulse Resp B/P (MAP) Pulse Ox O2 Delivery O2 Flow Rate FiO2 06/27/18 14:07 16 06/27/18 14:00 98.6 68 134/75 (94) 96 06/25/18 14:34 Room Air I&O- Last 24 Hours up to 6 AM 06/27/18 05:59 Intake Total 480 ml Output Total 0 ml Balance 480 ml JOSEPH RICARDO DO Jun 27, 2018 17:11
[2018-06-27] MEDS: PERCOCET 5MG/325MG TAB PO PRN (18:13)
[2018-06-27] MEDS: predniSONE 50 MG TAB PO SCH (20:59)
[2018-06-27 22:00] VITALS: BP 130/65
[2018-06-28] MEDS: CEFEPIME HCL 1 GM in D5W MINI-BAG PLUS 50 ML IV SCH ×2 (03:45→14:39)
[2018-06-28] MEDS: PERCOCET 5MG/325MG TAB PO PRN ×3 (03:49→17:16)
[2018-06-28] MEDS: metroNIDAZOLE 500 MG in APPROPRIATE DILUENT 1 EA IV SCH ×3 (04:30→20:39)
[2018-06-28] MEDS: HEPARIN SOD (PORCINE) 5000 UNITS/ML VIAL SC SCH ×3 (05:43→22:28)
[2018-06-28 06:00] VITALS: BP 135/68
[2018-06-28 06:02] LABS: HEMATOCRIT 35.9 % (42.0-52.0); HEMOGLOBIN 11.4 g/dl (13.5-17.5); MEAN CORPUSCULAR HEMOGLOBIN 22.4 pg (27.0-33.0); MEAN CORPUSCULAR HGB CONC 31.8 g/dl (32.0-36.5); MEAN CORPUSCULAR VOLUME 70.7 fl (80.0-96.0); PLATELET COUNT, AUTOMATED 360 10^3/uL (150-450); RED BLOOD COUNT 5.08 10^6/uL (4.30-6.10); WHITE BLOOD COUNT 8.4 10^3/uL (4.0-10.0)
[2018-06-28 06:23] LABS: BLOOD UREA NITROGEN 12 MG/DL (7-18); CALCIUM LEVEL 8.2 MG/DL (8.5-10.1); CARBON DIOXIDE LEVEL 27 MEQ/L (21-32); CHLORIDE LEVEL 106 MEQ/L (98-107); CREATININE FOR GFR 0.86 MG/DL (0.70-1.30); GLOMERULAR FILTRATION RATE > 60.0 (>60); GLUCOSE, FASTING 114 MG/DL (70-100); SODIUM LEVEL 138 MEQ/L (136-145)
[2018-06-28] MEDS: azaTHIOprine 50 MG TAB (J7500) PO SCH (09:27)
[2018-06-28] MEDS: predniSONE 50 MG TAB PO SCH (09:28)
[2018-06-28] MEDS: MULTIVITAMINS/MINERALS THERAP 1 TAB PO SCH (09:29)
[2018-06-28] MEDS: FOLIC ACID 1 MG TAB PO SCH (09:29)
[2018-06-28 14:00] VITALS: BP 125/64
--- NOTE | 2018-06-28 16:53 | IPNPDOC ---
Text Note Date of Service The patient was seen on 06/28/18. NOTE SUBJECTIVE: Patient is seen and examined in the room today. His abdominal pain is better. Pain is control. He tolerates oral intake. Denies any fever or chills. OBJECTIVE: VITAL SIGNS: Listed below. GENERAL: No acute distress. Alert and awake. HEENT: Normocephalic, atraumatic. Extraocular motor grossly intact. CARDIOVASCULAR: Positive S1, S2. Regular rate. LUNGS: Clear to auscultation bilaterally. ABDOMEN: Hypoactive bowel sounds. Tenderness to palpation at mid abdomen and left lower abdomen. EXTREMITIES: No edema. LABORATORY DATA: List below. ASSESSMENT AND PLAN: #. Acute Crohn's flare. - CT abdomen and pelvis results reviewed. General surgery consulted. Per impression, patient seems to be dealing with acute Crohn's flare. On antibiotics. On azathioprine. On tapering steroid - Follow up with with Dr Roman in the outpatient setting. GI consult is not available at this moment. - Titrating pain medication. Titrating steroid. Advance diet as tolerated. # Persistent diarrhea - Possibly secondary to Crohn's flare. - GI panel is negative. Stool lactoferrin is positive. #. Deep venous thrombosis (DVT) prophylaxis. On heparin. VS,Fishbone, I+O VS, Fishbone, I+O Laboratory Tests 06/28/18 05:22 Red Blood Count 5.08, Mean Corpuscular Volume 70.7 L, Mean Corpuscular Hemoglobin 22.4 L, Mean Corpuscular Hemoglobin Concent 31.8 L, Red Cell Distribution Width 19.0 H, Calcium Level 8.2 L Vital Signs Date Time Temp Pulse Resp B/P (MAP) Pulse Ox O2 Delivery O2 Flow Rate FiO2 06/28/18 14:00 99.0 72 17 125/64 (84) 92 06/25/18 14:34 Room Air I&O- Last 24 Hours up to 6 AM 06/28/18 06:00 Intake Total 5860 ml Balance 5860 ml JOSEPH RICARDO DO Jun 28, 2018 16:53
[2018-06-28] MEDS: predniSONE 20 MG TAB PO SCH (20:39)
[2018-06-28 22:00] VITALS: BP 146/77
[2018-06-29] MEDS: PERCOCET 5MG/325MG TAB PO PRN ×2 (04:08→11:08)
[2018-06-29] MEDS: CEFEPIME HCL 1 GM in D5W MINI-BAG PLUS 50 ML IV SCH (04:08)
[2018-06-29] MEDS: metroNIDAZOLE 500 MG in APPROPRIATE DILUENT 1 EA IV SCH ×2 (04:09→12:10)
[2018-06-29 06:00] VITALS: BP 133/67
[2018-06-29] MEDS: HEPARIN SOD (PORCINE) 5000 UNITS/ML VIAL SC SCH (06:09)
[2018-06-29 07:09] LABS: HEMATOCRIT 37.6 % (42.0-52.0); HEMOGLOBIN 11.9 g/dl (13.5-17.5); MEAN CORPUSCULAR HEMOGLOBIN 22.9 pg (27.0-33.0); MEAN CORPUSCULAR HGB CONC 31.6 g/dl (32.0-36.5); MEAN CORPUSCULAR VOLUME 72.3 fl (80.0-96.0); PLATELET COUNT, AUTOMATED 355 10^3/uL (150-450); WHITE BLOOD COUNT 9.6 10^3/uL (4.0-10.0)
[2018-06-29 07:29] LABS: BLOOD UREA NITROGEN 11 MG/DL (7-18); CALCIUM LEVEL 8.4 MG/DL (8.5-10.1); CARBON DIOXIDE LEVEL 27 MEQ/L (21-32); CHLORIDE LEVEL 105 MEQ/L (98-107); CREATININE FOR GFR 0.92 MG/DL (0.70-1.30); GLOMERULAR FILTRATION RATE > 60.0 (>60); GLUCOSE, FASTING 126 MG/DL (70-100); SODIUM LEVEL 138 MEQ/L (136-145)
[2018-06-29] MEDS: azaTHIOprine 50 MG TAB (J7500) PO SCH (09:20)
[2018-06-29] MEDS: FOLIC ACID 1 MG TAB PO SCH (09:21)
[2018-06-29] MEDS: MULTIVITAMINS/MINERALS THERAP 1 TAB PO SCH (09:21)
[2018-06-29] MEDS: predniSONE 20 MG TAB PO SCH (09:21)
[2018-06-29] MEDS ORDERED: CIPR-249 PO (12:53)
[2018-06-29] MEDS ORDERED: FLAG500T PO (12:53)
[2018-06-29] MEDS ORDERED: PRED10TA2 PO (12:53)
[2018-06-29] MEDS ORDERED: PERCOCET PO (12:53)
--- NOTE | 2018-06-29 20:39 | DSES ---
DATE OF ADMISSION: 06/25/2018 DATE OF DISCHARGE: 06/29/2018 DISCHARGE DIAGNOSES: 1. Acute Crohn's flare. 2. Persistent diarrhea. HOSPITALIZATION COURSE: The patient is a 43-year-old gentleman from the correctional facility. He presented to [facility] on 06/25/2018 with a chief complaint of crampy abdominal pain for several days. Imaging studies were performed. The patient was admitted under the hospitalist service with the diagnosis of acute Crohn's flare with possible complication. Imaging study demonstrated possibility for abscess and the patient was started on empiric antibiotics and general surgery was consulted. The patient was evaluated by the general surgeon and it was recommended for continued medical management. The patient's steroids and pain medications were tapered. With medical management, the patient continued to demonstrate clinical improvement. Later, the patient was able to tolerate oral intake and pain was under control. Diarrhea was also improved. On 06/29/2018, the patient appeared medically stable with recommendations to follow with medical provider in the correctional facility in 2 to 3 days. The patient was also recommended to followup with Dr. Roman, who is the patient's GI doctor in the outpatient setting, in 1 week. The patient was recommended to finish his steroid taper. VITAL SIGNS: On the day of discharge: Temperature 98, pulse 57, respirations 20, blood pressure 133/67, pulse oximetry 95% on room air. LABORATORY DATA: On the day of discharge: WBC 9.6, hemoglobin 11.9, hematocrit 37.6, platelet count 355. Sodium is 138, potassium 4.0, chloride 105, carbon dioxide 27, BUN 11, creatinine 0.92, GFR greater than 60, fasting glucose 126, calcium 8.4, C-reactive protein 0.7. Microbiology: Stool negative. Stool lactoferrin positive. IMAGING STUDIES: CT of the abdomen with IV contrast demonstrated small abscess in the pelvis, contiguous residue of the bladder. Small pocket of extraluminal air and increased phlegmon, inflammatory changes contiguous with the right lateral margin of the sigmoid anastomoses. Significant distention of the distal ilium with stool/debris. Very mild small bowel ileus. Circumferential wall thickening of the sigmoid colon down to the level of the rectum. DISCHARGE MEDICATIONS: - ciprofloxacin 500 mg by mouth twice a day for 10 days - Flagyl 500 mg by mouth every 8 hours for 10 days - Percocet one tablet by mouth every 8 hours as needed for 3 days - prednisone taper - aspirin 650 mg by mouth every 6 hours as needed for pain - 50 mg by mouth daily - Humira 40 mg subcutaneously every 2 weeks - multivitamin one tablet by mouth daily - ondansetron 4 mg by mouth every 4 hours as needed for nausea DISCHARGE INSTRUCTIONS: Discontinue line. Discharge to correctional facility. Activity as tolerated. Diet as tolerated. The patient should followup with the medical provider in the correctional facility in 1 to 2 days. The patient followup with Dr. Roman, the GI specialist, in 1 week for Crohn's medication adjustment Discharge condition is fair. Discharge time was greater than 30 minutes.
== END 2018-06-29 13:45 | DRG 249 ==
LOC: M ED 16:28 → M ED INP 06-25 01:45 → M MS5PR 06-25 18:45
PROVIDERS: ADMIT Internal Medicine; ATTEND Internal Medicine
DX: K52.9 Noninfective gastroenteritis and colitis, unspecified (principal); Z91.013 Allergy to seafood; Z79.899 Other long term (current) drug therapy; Z79.82 Long term (current) use of aspirin

== ENCOUNTER → 2018-07-20 | Outpatient (CLI) | payer OTHER ==
[~2018-07-20] MED LIST changes: +ASPI-222 PO; +GASTROGRAFIN SOLUTION 30ML (Q9963) As Ordered ONE; +IMUR50TA7 PO; +ISOVUE-370 76% 100ML VIAL (Q9967) As Ordered ONE; +ONDA4TAB5 PO; +PERCOCET PO
--- NOTE | 2018-07-21 07:38 | REP ---
Clinical: Follow up abscess and inflammatory changes. Given history of pancreatic ductal neoplasm. Comparison: 06/24/2018. Technique: Axial contrast enhanced images from the lung bases to the pubic symphysis using oral (per protocol) and 100 ml Isovue 370 intravenous contrast material coronal and sagittal re-formations. Comparison: 06/24/2018. Findings: The small suspected abscess and surrounding phlegmonous changes within the pelvis which are inseparable from the dome of the bladder appears somewhat improved with decreased internal gas and fluid as compared to 06/24/2018. The associated inflammatory changes as well as mucosal thickening of the bowel from the level of the anastomosis through the remaining rectosigmoid colon also appear improved. The remainder of the enteric system is essentially unremarkable and there is no evidence for obstruction. No free air. No free fluid. No obvious significant drainable collection. Liver, spleen, pancreas, gallbladder, and bilateral adrenal glands and kidneys appear relatively normal / stable. The pancreas is grossly unremarkable and without ductal dilatation or obvious cystic/mass lesion. Stable calcified granuloma in the liver again identified. No ascites. No free air. No significant intraperitoneal or retroperitoneal adenopathy identified. Further evaluation of the pelvis demonstrates normal, age-appropriate prostate gland and seminal vesicles. No obvious intraperitoneal or retroperitoneal adenopathy. Incidental retroaortic left renal vein noted. No ascites. Abdominal aorta without aneurysm or dissection. Surrounding musculoskeletal structures are intact. Lung bases are clear. Impression: 1. Improved appearance to the phlegmonous changes and small abscess collection inseparable from the dome of the bladder along with improved appearance to the inflammatory changes involving the sigmoid colon and area of enterocolonic anastomosis. 2. No ascites, adenopathy, or free air appreciated. 3. No new acute process identified. Electronically Signed by South Jung MD 07/21/2018 07:30 A
== END ==
LOC: M RAD 13:27
PROVIDERS: ATTEND Surgery
DX: K50.90 Crohn's disease, unspecified, without complications (principal); Z85.07 Personal history of malignant neoplasm of pancreas
CPT/HCPCS: 74177; Q9963; Q9967

== ENCOUNTER → 2018-08-18 | Outpatient (CLI) | payer OTHER ==
[~2018-08-18] MED LIST changes: +ACET-716 PO; -ACET30TAB PO; +IMUR50TA10 PO; -IMUR50TA7 PO
--- NOTE | 2018-08-19 04:00 | REP ---
Clinical: Crohn disease with abdominal pain and microperforation. Technique: Axial contrast enhanced images from the lung bases to the pubic symphysis using oral (per protocol) and 100 ml Isovue 370 intravenous contrast material with delayed images of the abdomen as well as coronal and sagittal re-formations. Comparison: 07/20/2018, 06/24/2018. Findings: The patient is again noted to be status post total colectomy. Inflammatory changes involving the area of anterior colonic anastomosis within the pelvis appear slightly improved (images 97-119). Abscess involving the dome of the bladder with irregular wall thickening and adjacent inflammatory stranding is also again appreciated and appears relatively similar to prior examination (images 107-126). There is no evidence for bowel obstruction. No free air. Liver, spleen, pancreas, gallbladder, bilateral adrenal glands and kidneys are normal. Further evaluation of the pelvis demonstrates normal prostate and seminal vesicles. No ascites. Abdominal aorta is normal. Retroaortic left renal vein noted. Osseous structures are intact. Lung bases are clear. Impression: 1. Continued inflammatory changes involving the area of anterior colonic anastomosis but slightly improved from prior examination. 2. Phlegmon/small abscess with irregular wall thickening involving the dome of the bladder appears similar to prior examination. 3. There is no evidence for bowel obstruction or pneumoperitoneum. Electronically Signed by South Jung MD 08/19/2018 03:51 A
== END ==
LOC: M RAD 12:08
PROVIDERS: ATTEND Surgery
DX: K50.90 Crohn's disease, unspecified, without complications (principal); Z98.0 Intestinal bypass and anastomosis status
CPT/HCPCS: 74177; Q9963; Q9967